=== PATIENT | male | born 1970 | race Caucasian/White ===

== ENCOUNTER 2022-12-26 12:56 | Outpatient (RCR) | payer BC, SELFPAY | END 2023-03-08 15:49 | disposition home or self-care (01) | PROVIDERS: PCP Family Medicine; Visit Provider Family Medicine | DX: M54.50 Low back pain, unspecified (principal); Z51.89 Encounter for other specified aftercare | CPT/HCPCS: 97110; 97161 ==

== ENCOUNTER 2023-07-21 21:51 | Emergency (ER) | payer BC, SELFPAY ==
[2023-07-21 21:54] VITALS: BP 156/82; PULSE 104; RESP 16; TEMP 36.4; O2SAT 95; BMI 39.6
--- NOTE | 2023-07-21 22:07 | ED_ITS ---
HPI - Extremity Injury (Lower) General Chief Complaint: Extremity Pain/Injury, Lower Stated Complaint: R foot is flaring up by toes. Time Seen by Provider: 07/21/23 21:53 History of Present Illness HPI Narrative: Patient is a 53-year-old gentleman with history of gout comes in with a s wollen right foot. The pain started several days ago on the right heel after several protein meals during the week. Has not had gout for quite some time. He has had no fevers no chills no injuries no skin breakdown. Some mild redness to the heel and forefoot but no other significant findings other than the swelling and pain which he states his moderate and sharp. No other concerns noted. Related Data Home Medications Medication Instructions Recorded Confirmed No Known Home Medications 07/21/23 07/21/23 Allergies Allergy/AdvReac Type Severity Reaction Status Date / Time No Known Allergies Allergy Unknown Unknown Verified 06/02/23 16:09 Review of Systems Status of ROS: Reports: 10 or more systems reviewed and unremarkable except as noted in History and below PFSH PFSH Surgical History History of spinal surgery ?Z98.890 - Other specified postprocedural states (ICD-10) History of repair of left rotator cuff ?Z98.890 - Other specified postprocedural states (ICD-10) History of colonoscopy ?Z98.890 - Other specified postprocedural states (ICD-10) History of arthroscopy of right knee ?Z98.890 - Other specified postprocedural states (ICD-10) Family History Mother Yesenia Other Renal cell carcinoma Social History Narrative: Non-smoker Smoking Status: Never smoker Exam Narrative: Exam Narrative: EXAM GENERAL: Patient appears comfortable and well. EYES: No scleral icterus. ENT: Tympanic membranes and oropharynx normal. THYROID: no thyroid nodules or thyromegaly. LYMPH: No supraclavicular or cervical lymphadenopathy. SKIN: Visible skin seen during exam normal or with benign process only. EXT: Mild redness of the right foot with mild swelling noted as above. HEART: Regular rate and rhythm with no murmurs, rubs, or gallops. LUNGS: Clear to auscultation bilaterally with no crackles or wheezes. ABD: Soft, non tender, non distended. PSYCH: Good eye contact, speech is not pressured. Const: Vital Signs, click to edit/add: Vital Signs - 24 hr 07/21/23 21:54 Temperature 97.6 F Pulse Rate [Left P ulse Oximeter] 104 H Respiratory Rate 16 Blood Pressure [Ri ght Upper Arm] 156/82 H Pulse Oximetry 95 Oxygen Delivery Me thod Room Air Course Course ED Course: Patient seen and examined. Medical records reviewed. Vital Signs Vital signs: Initial Vital Signs Temperature 97.6 F 07/21/23 21:54 Temperature Source Temporal Artery Scan 07/21/23 21:54 Pulse Rate 104 H 07/21/23 21:54 Respiratory Rate 16 07/21/23 21:54 Blood Pressure 156/82 H 07/21/23 21:54 Blood Pressure Mean 106 H 07/21/23 21:54 Blood Pressure Position Sitting 07/21/23 21:54 Pulse Oximetry 95 07/21/23 21:54 Oxygen Delivery Method Room Air 07/21/23 21:54 Vital Signs Temperature 97.6 F 07/21/23 21:54 Pulse Rate 104 H 07/21/23 21:54 Respiratory Rate 16 07/21/23 21:54 Blood Pressure 156/82 H 07/21/23 21:54 Pulse Oximetry 95 07/21/23 21:54 Oxygen Delivery Method Room Air 07/21/23 21:54 Temperature 97.6 F 07/21/23 21:54 Pulse Rate 104 H 07/21/23 21:54 Respiratory Rate 16 07/21/23 21:54 Blood Pressure 156/82 H 07/21/23 21:54 Pulse Oximetry 95 07/21/23 21:54 Oxygen Delivery Method Room Air 07/21/23 21:54 MDM - Extremity Injury (Lower) MDM Narrative Medical decision making narrative: Patient is a 53-year-old gentleman who comes in today with several day history of right foot pain. He has a history of gout and his symptoms are most consistent with gout. His physical exam is otherwise unremarkable. At this time I did treat him with Tylenol plus a 5 day course of prednisone. He will follow up with his primary physician to talk about gout prevention and further management. Otherwise symptomatic management. Differential diagnosis includes but not limited to gout pseudogout fracture sprain cellulitis. Differential Diagnosis Differential diagnosis: Likely ankle sprain and strain and acute internal derangement of knee Discharge Plan Discharge Clinical Impression: Gout Patient Disposition: Home, Self-Care Condition: Stable Instructions: Gout (ED) Additional Instructions: prednisone as directed Tylenol leg elevation follow-up with your doctor Activity Level: No Restrictions Discharge Diet: Regular Prescriptions: No Action No Known Home Medications Follow Up/Referrals: Leila Bowman DO [Primary Care Provider] - Stand Alone Forms: [facility] Info Instructions
== END 2023-07-21 22:28 | disposition home or self-care (01) ==
LOC: ED 22:12
PROVIDERS: Emergency Provider Internal Medicine; PCP Family Medicine
DX: M10.9 Gout, unspecified (principal)
CPT/HCPCS: 99283

== ENCOUNTER 2023-10-10 13:21 | Outpatient (CLI) | payer BC, SELFPAY | END 2023-10-10 13:22 | disposition home or self-care (01) | PROVIDERS: PCP Family Medicine; Visit Provider Family Medicine | DX: I10 Essential (primary) hypertension (principal); E78.5 Hyperlipidemia, unspecified; E78.00 Pure hypercholesterolemia, unspecified; M10.9 Gout, unspecified; K76.0 Fatty (change of) liver, not elsewhere classified; E66.9 Obesity, unspecified; Z12.5 Encounter for screening for malignant neoplasm of prostate | CPT/HCPCS: 80053; 80061; G0103 ==

== ENCOUNTER 2025-02-08 07:31 | Emergency (ER) | payer BC, SELFPAY ==
--- OUTSIDE RECORDS SUMMARY | 2025-02-08 07:33 | XMS_ITS | Clinical Summary ---
Author Organization [facility] Address [address] [place] [id number] Care Team Providers Care Him Coder Name Role Phone Myranda Barajas RADHA Primary Care Provider [phone] Allergies No known active allergies Medications CPAP As directed. Autotitration cpap 4-15cm of H2O, with accessories Diagnosis 327.23 1 unit 0 0 Active citalopram (CELEXA) 20 mg tablet Take 1 tablet by mouth once daily. 0 3 Active lisinopril (PRINIVIL; ZESTRIL) 10 mg tablet Take 1 tablet by mouth once daily. 0 3 Active Active Problems Problem Noted Date Diagnosed Date SANDER 07/20/2009 AHI-31 08/24/2009 Social History Tobacco Use Types Packs/Day Years Used Date Smoking Tobacco: Never Smokeless Tobacco: Never Alcohol Use Standard Drinks/Week Comments No 0 (1 standard drink = 0.6 oz pur e alcohol) Sex and Gender Information Value Date Recorded Sex Assigned at Not on file Legal Sex Male 6:15 AM [employer] Gender Identity Not on file Sexual Orientation Not on file Obstetrics History Last Filed Vital Signs Vital Sign Reading Time Taken Comments Blood Pressure 124/80 02/11/2013 2:07 PM CDT Pulse 80 02/11/2013 2:07 PM CDT Temperature 36.7 C (98 F) 02/11/2013 2:07 PM CDT Respiratory Rate - - Oxygen Saturation 96% 02/11/2013 2:07 PM CDT Inhaled Oxygen Concentration - - Weight 151 kg (333 lb) 02/11/2013 2:07 PM CDT Height 188 cm (6' 2) 02/11/2013 2:07 PM CDT Body Mass Index 42.75 02/11/2013 2:07 PM CDT Plan of Treatment Health Maintenance Due Date Last Done Comments Tetanus booster 01/22/1979 Depression screening for age 12+ 1980 HIV for age 15-65 01/22/1983 BMI (ht and wt on same day) for age 18+ 01/22/1986 Hepatitis C screening for age 18-79 01/22/1986 Hepatitis B series for 19+ ( 1 of 3 - 19+ 3-dose series) 01/22/1987 Colonoscopy through age 75 01/22/2013 Lipids for age 45-75 01/22/2013 11/02/2006 Pneumococcal series for age 50+ (1 of 1 - PCV) 018 Zoster (shingles) series for age 50+ (1 of 2) 01/23/20 18 COVID-19 vaccine series (1 - 2023- season) 4 Influenza Vaccine (#1) 2025 Procedures Procedure Name Priority Date/Time Associated Diagnosis Comments LIPID PANEL Timed 11/02/2006 7:03 AM CDT from Last 3 Months or Most Recently Relevant to Health Maintenance Results * (ABNORMAL) LIPID PANEL (11/02/2006 7:03 AM CDT) CHOLESTEROL,TOTAL 219(H) 110 - 199 mg/dL [facility] TRIGLYCERIDES 234(H) <150 mg/dL [facility] HDL CHOLESTEROL 31(L) >40 mg/dL [facility] CHOL/HDL RATIO 7.07(H) <4.51 [facility] LDL CHOLESTEROL 141(H) <131 mg/dL [facility] PATIENT STATUS Fasting [facility] 11/02/2006 7:03 AM CDT 11/02/2006 7:03 AM CDT us Manjinder Mendez MD CHEMISTRY Final Re sult [facility] [address] [place] [address] from Last 3 Months or Most Recently Relevant to Health Maintenance Insurance [facility] Care Teams Him Coder Relationship Specialty Start Date End Date Karl October RADHA Angel [address] [place] [address] PCP - General Physician Machine Sole Leveler 12/19/12
[2025-02-08 07:35] VITALS: BP 151/90; PULSE 76; RESP 18; TEMP 36.5; O2SAT 96; BMI 38.7
--- NOTE | 2025-02-08 08:04 | ED_ITS ---
HPI - Allergic Reaction General Chief complaint: Allergic Reaction Stated complaint: throat swelling Time Seen by Provider: 02/08/25 07:49 History of Present Illness HPI narrative: Patient is a 55-year-old gentleman who comes in today after significant allergen exposure yesterday blowing nose. He began having a fullness in his throat overnight. Patient does have sleep apnea and does wear CPAP. He is having a difficult time with swallowing but is breathing without any difficulty. He has a noticeably enlarged uvula at home and is brought in by his family. No other concerns noted. No rashes no other mucous membrane involvement no neurologic changes. No palpitations or chest pain. Related Data Previous Rx's ?Medication ?Instructions ?Recorded colchicine 0.6 mg tablet 0.6 mg PO QDAY #90 tabs 09/15 01/07 indomethacin 50 mg capsule 50 mg PO TID PRN gout #30 c aps 05/21/24 Allergies Allergy/AdvReac Type Severity Reaction Status Date / Time No Known Allergies Allergy Unknown Unknown Verified 11/07/23 15:00 Review of Systems Status of ROS Reports: 10 or more systems reviewed and unremarkable except as noted in History and below PFSH PFS Medical History Hypertension ?I10 - Essential (primary) hypertension (ICD-10) Surgical History History of spinal surgery ?Z98.890 - Other specified postprocedural states (ICD-10) History of repair of left rotator cuff (05/25/04) ?Z98.890 - Other specified postprocedural states (ICD-10) History of colonoscopy ?Z98.890 - Other specified postprocedural states (ICD-10) History of arthroscopy of right knee ?Z98.890 - Other specified postprocedural states (ICD-10) Family History Mother Yesenia Other Renal cell carcinoma Social History Narrative: Non-smoker Smoking Status: Never smoker Do you use any of these nicotine containing products: None Second hand tobacco smoke exposure: Yes Exam Narrative: Exam Narrative: EXAM GENERAL: Patient appears comfortable and well. Uvula is approximately 3 times size of normal. EYES: No scleral icterus. ENT: Tympanic membranes and oropharynx normal. THYROID: no thyroid nodules or thyromegaly. LYMPH: No supraclavicular or cervical lymphadenopathy. SKIN: Visible skin seen during exam normal or with benign process only. EXT: No dependent lower extremity pedal edema. HEART: Regular rate and rhythm with no murmurs, rubs, or gallops. LUNGS: Clear to auscultation bilaterally with no crackles or wheezes. ABD: Soft, non tender, non distended. PSYCH: Good eye contact, speech is not pressured. Const: Vital Signs, click to edit/add: Vital Signs - 24 hr 02/08/25 07:35 Temperature 97.7 F Pulse Rate [Pulse Oximeter] 76 Respiratory Rate 18 Blood Pressure [Ri ght Upper Arm] 151/90 H Pulse Oximetry 96 Oxygen Delivery Me thod Room Air Course Course ED Course: Patient seen examined. He has localized swelling of his uvula but I do believes airway is intact. I do not believe he needs hospitalization or epinephrine. I did give him a shot of Solu-Medrol [address] him on prednisone 20 mg b.i.d. for 5 days. He will follow-up with his primary physician as needed. Differential diagnosis includes but not limited to acute angioedema local swelling of the uvula allergic reaction strep throat viral pharyngitis foreign body. Vital Signs Vital signs: Initial Vital Signs Temperature 97.7 F 02/08/25 07:35 Temperature Source Temporal Artery Scan 02/08/25 07:35 Pulse Rate 76 02/08/25 07:35 Respiratory Rate 18 02/08/25 07:35 Blood Pressure 151/90 H 02/08/25 07:35 Blood Pressure Mean 110 H 02/08/25 07:35 Pulse Oximetry 96 02/08/25 07:35 Oxygen Delivery Method Room Air 02/08/25 07:35 Vital Signs Temperature 97.7 F 02/08/25 07:35 Pulse Rate 76 02/08/25 07:35 Respiratory Rate 18 02/08/25 07:35 Blood Pressure 151/90 H 02/08/25 07:35 Pulse Oximetry 96 02/08/25 07:35 Oxygen Delivery Method Room Air 02/08/25 07:35 Temperature 97.7 F 02/08/25 07:35 Pulse Rate 76 02/08/25 07:35 Respiratory Rate 18 02/08/25 07:35 Blood Pressure 151/90 H 02/08/25 07:35 Pulse Oximetry 96 02/08/25 07:35 Oxygen Delivery Method Room Air 02/08/25 07:35 Discharge Plan Discharge Clinical Impression: Allergic reaction Patient Disposition: Home, Self-Care Condition: Stable Instructions: General Allergic Reaction (ED) Additional Instructions: Prednisone as directed Zyrtec or Kathleen as directed for the next 7 days. Follow-up with your doctor as needed. Activity Level: No Restrictions Discharge Diet: Regular Prescriptions: No Action colchicine 0.6 mg tablet 0.6 mg PO QDAY Qty: 90 0RF indomethacin 50 mg capsule 50 mg PO TID PRN (Reason: gout) Qty: 30 2RF Rx Instructions: administer with food or milk Follow Up/Referrals: Luis Manuel Henning MD [Primary Care Provider, Family Practice] Stand Alone [facility]: [facility] Info Instructions
== END 2025-02-08 08:24 | disposition home or self-care (01) ==
PROVIDERS: Emergency Provider Internal Medicine; PCP Family Medicine
DX: T78.40XA Allergy, unspecified, initial encounter (principal); T78.3XXA Angioneurotic edema, initial encounter
CPT/HCPCS: 96374; 99283; 99284; J2919

== ENCOUNTER 2025-03-27 11:39 | Outpatient (CLI) | payer BC, SELFPAY | END 2025-03-27 11:40 | disposition home or self-care (01) | PROVIDERS: PCP Family Medicine; Visit Provider Family Medicine | DX: Z01.818 Encounter for other preprocedural examination (principal); G47.33 Obstructive sleep apnea (adult) (pediatric); I10 Essential (primary) hypertension; K76.0 Fatty (change of) liver, not elsewhere classified; M1A.9XX0 Chronic gout, unspecified, without tophus (tophi) | CPT/HCPCS: 80053; 84550; G0103 ==